=== PATIENT | male | born 1965 ===

== ENCOUNTER 2023-08-18 14:41 | Emergency (ER) | payer SELFPAY ==
[~2023-08-18] VITALS: Ht 167.6 cm; Wt 86.4 kg
[2023-08-18 14:47] VITALS: BP 128/81; PULSE 80; RESP 16; TEMP 98.1
[2023-08-18] MEDS ORDERED: SITA1TBM4 PO (14:48)
[2023-08-18] MEDS ORDERED: AMLO-258 PO (14:48)
[2023-08-18] MEDS ORDERED: [UNRECOGNIZED DRUG - OTHER] PO (14:48)
== END 2023-08-18 16:48 | disposition left against medical advice (07) ==
LOC: EMS 14:41
DX: J34.0 Abscess, furuncle and carbuncle of nose (principal); E11.65 Type 2 diabetes mellitus with hyperglycemia; I10 Essential (primary) hypertension
CPT/HCPCS: 82962; 99282

== ENCOUNTER 2023-08-18 21:00 | Emergency (ER) | payer SELFPAY ==
[~2023-08-18] VITALS: Ht 165.1 cm; Wt 86.4 kg
[~2023-08-18 21:00] MED LIST: AMLO-258 PO; SITA1TBM4 PO; [UNRECOGNIZED DRUG - OTHER] PO
[2023-08-18] MEDS ORDERED: 0.9% SODIUM CHLORIDE 10 ML SYRINGE IVP PRN (23:00)
[2023-08-18 23:50] LABS: BASOPHILS % (AUTO) 1.5 % (0.0-2.0); EOSINOPHILS % (AUTO) 3.3 % (1.0-6.0); HEMATOCRIT 44.6 % (41-53); HEMOGLOBIN 15.2 g/dL (13.5-17.5); LYMPHOCYTES # (AUTO) 2.5 K/uL (1.0-4.8); LYMPHOCYTES % (AUTO) 28.1 % (22.0-44.0); MEAN CORPUSCULAR HEMOGLOBIN 30.6 pg (26.0-34.0); MEAN CORPUSCULAR HGB CONC 34.1 G/dL (31.0-37.0); MEAN CORPUSCULAR VOLUME 90 fL (80-100); MONOCYTES # (AUTO) 0.8 K/uL (0.1-1.0); MONOCYTES % (AUTO) 9.3 % (2.0-9.0); NEUTROPHILS # (AUTO) 5.1 K/uL (1.8-7.7); NEUTROPHILS % (AUTO) 57.8 % (40.0-70.0); PLATELET COUNT (AUTO) 241 K/uL (150-450); RED BLOOD CELL COUNT(AUTO) 4.97 MIL/uL (4.50-5.90); RED CELL DISTRIBUTION WIDTH 12.9 % (11.5-14.5); WHITE BLOOD COUNT (AUTO) 8.8 K/uL (4.5-11.0)
[2023-08-18 23:59] LABS: ANION GAP 11 mmol/L (8-16); CALCIUM, TOTAL 9.8 mg/dL (8.8-10.5); CARBON DIOXIDE 28 mmol/L (22-29); CHLORIDE 97 mmol/L (98-107); CREATININE 1.48 mg/dL (0.60-1.30); GLOMERULAR FILTR. RATE CALC 49 mL/min (>60); GLUCOSE,RANDOM 356 mg/dL (70-110); POTASSIUM 3.9 mmol/L (3.5-5.1); SODIUM SERUM 136 mmol/L (136-145); UREA NITROGEN, BLOOD 22 mg/dL (7-18)
[2023-08-19 00:05] LABS: ALANINE AMINOTRANSFERASE 30 U/L (12-78); ALBUMIN 3.7 g/dL (3.4-5.0); ALKALINE PHOSPHATASE 158 U/L (46-116); ASPARTATE AMINOTRANSFERASE 17 U/L (15-37); BILIRUBIN,TOTAL 0.6 mg/dL (0.1-1.0); TOTAL PROTEIN, SERUM 8.8 g/dL (6.4-8.2)
[2023-08-19 00:13] LABS: LACTIC ACID 2.3 mmol/L (0.4-2.0)
[2023-08-19] MEDS: CefTRIAXone 1 GM/DEXTROSE 50 ML IV ONE (00:20)
[2023-08-19] MEDS: INSULIN REGULAR, HUMAN 100 UNITS/ML SQ ONE (00:21)
[2023-08-19] MEDS: SODIUM CHLORIDE 0.9% 1,000 ML IV ONE (00:22)
[2023-08-19] MEDS: DOXYCYCLINE HYCLATE 100 MG in DEXTROSE 5%-WATER 100 ML IV ONE (00:22)
[2023-08-19 02:38] VITALS: BP 132/74; PULSE 89; RESP 18; TEMP 98.3
== END 2023-08-19 02:57 | disposition home or self-care (01) ==
LOC: EMS 21:00
DX: J34.0 Abscess, furuncle and carbuncle of nose (principal); E11.9 Type 2 diabetes mellitus without complications; I10 Essential (primary) hypertension
CPT/HCPCS: 99284; 80053; 82962; 83605; 85025; 87040; 36415; 96365; 96368; 96372; J0696; J3490; J1815; J7060